=== PATIENT | female | born 1985 | race Caucasian/White ===

== ENCOUNTER 2024-09-18 23:43 | Emergency (ER) | payer SELFPAY ==
[2024-09-19 01:10] LABS: #Basophils 0.04 10x3/uL (0.0-0.2); %Basophils 0.4 % (0.0-1.0); %Eosinophils 3.3 % (0.0-10.0); %Lymphocytes 29.8 % (21.0-51.0); %Monocytes 3.4 % (0.0-10.0); %Neutrophils 62.2 % (42.0-75.0); Hematocrit 39.4 % (36.0-47.0); Hemoglobin 13.6 g/dL (12.0-16.0); Mean Corpuscular HGB CONC 34.5 g/dL (32.0-36.0); Mean Corpuscular Hemoglobin 27.5 pg (27.0-31.0); Mean Corpuscular Volume 79.6 fL (78.0-98.0); Platelet Count 322 10x3/uL (130-400); RBC Distribution Width 14.1 % (11.5-14.5); Red Blood Cell (RBC) Count 4.95 mill/uL (4.20-5.40)
[2024-09-19 01:18] LABS: BHCG - Serum Negative (NEGATIVE); Pregs Control Background? CLEAR/WHITE (CLR/WHITE); Pregs Control Bar Appear? YES (CONTROL BAR)
[2024-09-19 01:24] LABS: INR-International Normal Ratio 0.9; PTT 30.9 sec (22.9-36.1); Prothrombin Time 12.5 sec (12.0-14.7)
[2024-09-19 01:27] LABS: ALT (SGPT) 24 U/L (8-55); AST (SGOT) 17 U/L (5-34); Albumin 4.1 g/dL (3.5-5.0); Alkaline Phosphatase 91 U/L (40-110); Anion Gap 12 mmol/L (10-20); BUN (Urea Nitrogen) 9 mg/dL (7.0-18.7); Bilirubin, Total 0.9 mg/dL (0.2-1.2); Calc. Creatinine Clearance 0 mL/min (70-130); Calcium 9.7 mg/dL (7.8-10.44); Carbon Dioxide 24 mmol/L (22-29); Chloride 105 mmol/L (98-107); Estimated GFR 108; Globulin 3.5 g/dL (2.4-3.5); Glucose 104 mg/dL (70-105); Lipase 28 U/L (8-78); Potassium 3.5 mmol/L (3.5-5.1); Protein, Total 7.6 g/dL (6.0-8.3); Sodium 137 mmol/L (136-145)
[2024-09-19 01:31] LABS: Troponin I Less than 0.010 ng/mL (< 0.028)
[2024-09-19] MEDS ORDERED: Iopamidol-370 76% 500 ML MDV (1 ML CHARGE) ONE (11:28)
== END 2024-09-19 03:35 | disposition home or self-care (01) ==
LOC: ERS 23:43
DX: J06.9 Acute upper respiratory infection, unspecified (principal); Z87.891 Personal history of nicotine dependence
CPT/HCPCS: 71045; 71275; 80053; 83690; 83880; 84443; 84484; 84703; 85025; 85610; 85730; 87428; 93005